=== PATIENT | male | born 1970 | race Hispanic/Latino ===

== ENCOUNTER 2016-06-21 08:01 | Outpatient (CLI) | payer OTHER ==
--- NOTE | 2016-06-21 09:19 | XRay Report ---
LUMBAR SPINE RADIOGRAPHS: INDICATION: Lumbar stenosis. COMPARISON: 03/01/2016. FINDINGS: AP and lateral lumbar spine radiographs now demonstrate L3-L4 bilateral posterior vertical rods and fusion screws, new on the right. Stable intervertebral disc maintainer, though disc narrowing and mild spurring again noted. Mild remainder lower lumbar disc narrowing and facet arthropathy also may again be present. Slight thoracolumbar S-shaped scoliosis with apices about T12 and L3-L4. Clear visualized lung bases. Nonobstructive bowel gas pattern. Intact SI joints. CONCLUSION: Interval L3-L4 right-sided pedicle franky and screws fusion placement as well, now bilateral. Few other degenerative changes also again seen. Thank you for the opportunity to participate in this patient's care.
== END 2016-06-21 08:02 | disposition home or self-care (01) ==
LOC: SPVIMAG 08:01
PROVIDERS: ATTEND Physician Assistant
DX: M48.06 Spinal stenosis, lumbar region (principal); M12.88 Other specific arthropathies, not elsewhere classified, other specified site; M41.85 Other forms of scoliosis, thoracolumbar region
CPT/HCPCS: 72100